=== PATIENT | male | born 1970 | race Caucasian/White ===

== ENCOUNTER 2018-11-02 19:22 | Inpatient (IN) | payer OTHER ==
[~2018-11-02] VITALS: Ht 172.7 cm; Wt 95.3 kg
[2018-11-03] VITALS (11 sets, daily range): BP systolic 101–129; BP diastolic 54–78; PULSE 56–75; RESP 18–20; Ht 172.7 cm; Wt 95.3 kg
[2018-11-03] MEDS ORDERED: SOD CHLORIDE 0.9% 1,000 ML IV SCH (00:41)
[2018-11-03] MEDS ORDERED: NACL 0.9% 3 ML SYG IV SCH (01:00)
[2018-11-03] MEDS ORDERED: ACETAMINOPHEN 325 MG TAB PO PRN (01:00)
[2018-11-03] MEDS ORDERED: morphine 2 MG INJ IV PRN (01:00)
[2018-11-03] MEDS ORDERED: NITROGLYCERIN (SL) 0.4 MG TAB SL PRN ×2 (01:00→16:00)
[2018-11-03] MEDS ORDERED: ONDANSETRON 4 MG INJ IV PRN (01:00)
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
[2018-11-03] MEDS ORDERED: CHOL100062 PO (07:37)
[2018-11-03] MEDS ORDERED: ASPI-903 PO (07:37)
[2018-11-03] MEDS ORDERED: ATOR40TA68 PO (07:37)
[2018-11-03] MEDS ORDERED: MTF1000T PO (07:37)
[2018-11-03] MEDS: ASPIRIN 81 MG TAB PO SCH (08:06)
[2018-11-03] MEDS: DEXTROSE 5%-0.45% NACL 1,000 ML IV SCH (10:40)
--- NOTE | 2018-11-03 13:06 | RADRPT ---
Vent Rate: 63 bpm RR Interval: 948 msec VA Interval: 133 msec QRS Duration: 102 msec QT Interval: 402 msec QTC Interval: 413 msec P-R-T Center [place]: 39 - 5 - 1 degrees Sinus rhythm...normal P axis, V-rate 50- 99 Posterior infarct, old...prom R T, V1-V3 or Q >40mS, V7-V9 Electronically Signed By: Seb Rice
--- NOTE | 2018-11-03 14:02 | PN ---
Date/Time of Note Date/Time of Note DATE: 11/03/18 TIME: 13:57 Assessment/Plan VTE Prophylaxis Risk score (from Ns)>0 risk: 2 SCD applied (from Ns): No SCD contraindicated: low risk/ambulating Pharmacological prophylaxis: NA/contraindicated Pharm contraindication: low risk/ambulating Lines/Catheters IV Catheter Type (from Nrs): Peripheral IV Assessment/Plan Assessment/Plan 1. Acute chest pain, rule out ACS - Cardiology was consulted given findings of positive stress test. Results showed lateral wall perfusion defect - serial trops negative and will check 1 more - Morphine/Nitro/O2 PRN 2. Diabetes Mellitus - A1c noted - ISS and accuchecks - on Metformin and another PO medication per pt. Will hold while inpatient 3. HLD - statin on board 4. HTN - stable 5. CAD s/p PCI - hx stent placement in the past - currently on aspirin 6. Disposition - Awaiting Cardiology input given findings of positive stress test Result Diagram: 11/03/18 0101 11/03/18 0101 Results 24hrs Laboratory Tests Test 11/03/18 01:01 11/03/18 05:31 11/03/18 05:33 White Blood Count 8.7 Red Blood Count 4.56 L Hemoglobin 12.5 L Hematocrit 38.8 L Mean Corpuscular Volume 85.1 Mean Corpuscular Hemoglobin 27.4 L Mean Corpuscular Hemoglobin Concent 32.2 Red Cell Distribution Width 14.0 Platelet Count 158 Mean Platelet Volume 12.3 H Immature Granulocytes % 0.200 Neutrophils % 49.3 Lymphocytes % 38.4 Monocytes % 9.2 Eosinophils % 2.4 Basophils % 0.5 Nucleated Red Blood Cells % 0.0 Immature Granulocytes # 0.020 Neutrophils # 4.3 Lymphocytes # 3.4 H Monocytes # 0.8 Eosinophils # 0.2 Basophils # 0.0 Nucleated Red Blood Cells # 0.0 Sodium Level 140 Potassium Level 3.8 Chloride Level 105 Carbon Dioxide Level 27 Anion Gap 8 Blood Urea Nitrogen 11 Creatinine 0.87 Est Glomerular Filtrat Rate mL/min > 60 Glucose Level 113 Calcium Level 9.4 Total Bilirubin 0.4 Direct Bilirubin 0.00 Indirect Bilirubin 0.4 Aspartate Amino Transf (AST/SGOT) 19 Alanine Aminotransferase (ALT/SGPT) 26 Alkaline Phosphatase 57 Creatine Kinase 41 40 Creatine Kinase Index 0.6 0.7 Creatinine Kinase MB (Mass) 0.24 0.28 Troponin I 0.015 0.018 Total Protein 7.1 Albumin 4.0 Globulin 3.10 Albumin/Globulin Ratio 1.29 Triglycerides Level 346 H Cholesterol Level 172 LDL Cholesterol, Calculated 80 HDL Cholesterol 23 L Cholesterol/HDL Ratio 7.4 Thyroid Stimulating Hormone (TSH) 2.870 Hemoglobin A1c 7.9 H Magnesium Level 2.1 Subjective 24 Hr Interval Summary Free Text/Dictation Patient states pain has improved and denies any N/V/SOB. Admits to Dm but unsure name of medications he takes. Exam/Review of Systems Exam Vitals Vital Signs Date Temp Pulse Resp B/P (MAP) Pulse Ox O2 O2 Flow FiO2 Time Delivery Rate 11/03/18 64 12:00 11/03/18 98.0 20 125/70 100 Room Air 11:09 (88) Intake and Output 11/02/18 11/02/18 11/03/18 1515:00 23:00 07:00 IntakeIntake Total 375 ml BalanceBalance 375 ml Exam General: sitting in chair at bedside. no acute distress Neck: Supple Chest: Nontender to palpation Lungs: Clear to auscultation bilaterally no crackles rales or wheezing Heart: Normal S1-S2, Regular rhythm and rate. No murmur, S3, or S4 Abdomen: Obese, soft , nontender, nondistended , bowel sounds are present. No guarding no rebound tenderness Extremities: Normal to inspection, no edema no cyanosis Results Results 24hrs Laboratory Tests Test 11/03/18 01:01 11/03/18 05:31 11/03/18 05:33 White Blood Count 8.7 Red Blood Count 4.56 L Hemoglobin 12.5 L Hematocrit 38.8 L Mean Corpuscular Volume 85.1 Mean Corpuscular Hemoglobin 27.4 L Mean Corpuscular Hemoglobin Concent 32.2 Red Cell Distribution Width 14.0 Platelet Count 158 Mean Platelet Volume 12.3 H Immature Granulocytes % 0.200 Neutrophils % 49.3 Lymphocytes % 38.4 Monocytes % 9.2 Eosinophils % 2.4 Basophils % 0.5 Nucleated Red Blood Cells % 0.0 Immature Granulocytes # 0.020 Neutrophils # 4.3 Lymphocytes # 3.4 H Monocytes # 0.8 Eosinophils # 0.2 Basophils # 0.0 Nucleated Red Blood Cells # 0.0 Sodium Level 140 Potassium Level 3.8 Chloride Level 105 Carbon Dioxide Level 27 Anion Gap 8 Blood Urea Nitrogen 11 Creatinine 0.87 Est Glomerular Filtrat Rate mL/min > 60 Glucose Level 113 Calcium Level 9.4 Total Bilirubin 0.4 Direct Bilirubin 0.00 Indirect Bilirubin 0.4 Aspartate Amino Transf (AST/SGOT) 19 Alanine Aminotransferase (ALT/SGPT) 26 Alkaline Phosphatase 57 Creatine Kinase 41 40 Creatine Kinase Index 0.6 0.7 Creatinine Kinase MB (Mass) 0.24 0.28 Troponin I 0.015 0.018 Total Protein 7.1 Albumin 4.0 Globulin 3.10 Albumin/Globulin Ratio 1.29 Triglycerides Level 346 H Cholesterol Level 172 LDL Cholesterol, Calculated 80 HDL Cholesterol 23 L Cholesterol/HDL Ratio 7.4 Thyroid Stimulating Hormone (TSH) 2.870 Hemoglobin A1c 7.9 H Magnesium Level 2.1 Medications Medication Current Medications IV Flush (NS 3 ml) 3 ml PER PROTOCOL IV ; Start 11/03/18 at 01:00 Ondansetron HCl (Zofran Inj) 4 mg Q6H PRN IV NAUSEA/VOMITING; Start 11/03/18 at 01:00 Aspirin (Aspirin) 81 mg DAILY PO Last administered on 11/03/18at 08:06; Admin Dose 81 MG; Start 11/03/18 at 09:00 Nitroglycerin (Nitroglycerin (Sl Tab) 0.4 Mg) 1 tab Q5M PRN SL .CHEST PAIN; Start 11/03/18 at 01:00 Acetaminophen (Tylenol Tab) 650 mg Q6H PRN PO .PAIN 1-3 OR TEMP; Start 11/03/18 at 01:00 Morphine Sulfate (morphine) 2 mg Q4H PRN IV .PAIN 7-10; Start 11/03/18 at 01:00 Dextrose/Sodium Chloride 1,000 ml @ 75 mls/hr [id number] IV Last administered on 11/03/18at 10:40; Admin Dose 75 MLS/HR; Start 11/03/18 at 10:00 BENY COVARRUBIAS MD Nov 03, 2018 14:02
[2018-11-03] MEDS ORDERED: GLUCOSE GEL 15 GRAM TUBE PO PRN ×2 (14:30)
[2018-11-03] MEDS ORDERED: GLUCOSE GEL 15 GRAM TUBE BUCCAL PRN (14:30)
[2018-11-03] MEDS ORDERED: DEXTROSE 50% 50 ML SYRINGE IV PRN ×2 (14:30)
[2018-11-03] MEDS ORDERED: GLUCAGON 1 MG INJ IM PRN (14:30)
[2018-11-03] MEDS: INSULIN ASPART [NOVOLOG] 3 ML PEN SC SCH ×2 (18:00→20:57)
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
[2018-11-03] MEDS ORDERED: ATORVASTATIN 40 MG TAB PO SCH (21:00)
[2018-11-04] VITALS (21 sets, daily range): BP systolic 104–169; BP diastolic 61–92; PULSE 52–85; RESP 10–21
[2018-11-04] MEDS: DEXTROSE 5%-0.45% NACL 1,000 ML IV SCH ×2 (02:18→12:40)
[2018-11-04] MEDS ORDERED: DIAZEPAM 5 MG TAB PO ONE (08:00)
[2018-11-04] MEDS ORDERED: DIPHENHYDRAMINE 50 MG CAP PO ONE (08:00)
[2018-11-04] MEDS: INSULIN ASPART [NOVOLOG] 3 ML PEN SC SCH ×4 (08:39→21:00)
[2018-11-04] MEDS: ASPIRIN 81 MG TAB PO SCH (08:39)
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
[2018-11-04] MEDS ORDERED: LIDOCAINE 1% (MDV) 20 ML INJ ONE (10:42)
[2018-11-04] MEDS ORDERED: HEPARIN 1000 UNITS/ML 10 ML INJ ONE ×2 (10:42)
[2018-11-04] MEDS ORDERED: NITROGLYCERIN (IC) 100 MCG/ML INJ ONE (10:42)
[2018-11-04] MEDS ORDERED: VERAPAMIL 5 MG INJ ONE (10:42)
[2018-11-04] MEDS ORDERED: MIDAZOLAM 1 MG/ML 2 ML INJ ONE (11:06)
[2018-11-04] MEDS ORDERED: FENTAnyl 50 MCG/ML VIAL ONE (11:18)
[2018-11-04] MEDS ORDERED: IOHEXOL 350MG/ML 50 ML BTL ONE ×2 (11:20→12:09)
[2018-11-04] MEDS ORDERED: BIVALIRUDIN 250MG /NS 50 ML 50 ML IVPB ONE (11:44)
--- NOTE | 2018-11-04 12:04 | PN ---
Date/Time of Note Date/Time of Note DATE: 11/04/18 TIME: 12:01 Assessment/Plan VTE Prophylaxis Risk score (from Nsg)>0 risk: 1 SCD applied (from Ns): No SCD contraindicated: low risk/ambulating Pharmacological prophylaxis: NA/contraindicated Pharm contraindication: low risk/ambulating Lines/Catheters IV Catheter Type (from Nrs): Peripheral IV Assessment/Plan Assessment/Plan 1. Acute chest pain, rule out ACS - Cardiology consultation appreciated and plans for C today in light of positive stress test showing small reversible lateral wall perfusion defect - serial trops negative - Morphine/Nitro/O2 PRN 2. Diabetes Mellitus - A1c noted - ISS and accuchecks - on Metformin and another PO medication per pt. Will hold while inpatient 3. HLD - statin on board 4. HTN - stable 5. CAD s/p PCI - hx stent placement in the past - currently on aspirin 6. Disposition - Plans for [facility] today and possible PCI with stent placement. Further plan of care based on [facility] results Result Diagram: 11/04/18 0516 11/04/18 0516 Results 24hrs Laboratory Tests Test 11/03/18 14:49 11/03/18 18:06 11/03/18 20:39 11/04/18 05:16 Creatine Kinase 39 Creatine Kinase 0.6 Index Creatinine Kinase MB < 0.22 (Mass) Troponin I < 0.012 Bedside Glucose 135 118 White Blood Count 6.7 # Red Blood Count 4.40 L Hemoglobin 12.2 L Hematocrit 37.8 L Mean Corpuscular 85.9 Volume Mean Corpuscular 27.7 L Hemoglobin Mean Corpuscular 32.3 Hemoglobin Concent Red Cell 13.7 Distribution Width Platelet Count 146 Mean Platelet Volume 12.7 H Immature 0.100 Granulocytes % Neutrophils % 54.4 Lymphocytes % 33.9 Monocytes % 9.1 Eosinophils % 2.1 Basophils % 0.4 Nucleated Red Blood 0.0 Cells % Immature 0.010 Granulocytes # Neutrophils # 3.6 Lymphocytes # 2.3 Monocytes # 0.6 Eosinophils # 0.1 Basophils # 0.0 Nucleated Red Blood 0.0 Cells # Prothrombin Time 11.8 L Prothrombin Time 0.9 Ratio INR International 0.86 Normalized Ratio Activated 29.8 Partial Thromboplast Time Sodium Level 140 Potassium Level 3.8 Chloride Level 107 Carbon Dioxide Level 27 Anion Gap 6 Blood Urea Nitrogen 12 Creatinine 0.71 Est Glomerular > 60 Filtrat Rate mL/min Glucose Level 180 Calcium Level 9.2 Total Bilirubin 0.3 Direct Bilirubin 0.00 Indirect Bilirubin 0.3 Aspartate Amino 19 Transf (AST/SGOT) Alanine 23 Aminotransferase (AL T/SGPT) Alkaline Phosphatase 65 Total Protein 6.8 Albumin 3.9 Globulin 2.90 Albumin/Globulin 1.34 Ratio Test 11/04/18 08:12 Bedside Glucose 147 Subjective 24 Hr Interval Summary Free Text/Dictation Patient states hes feeling better and anxious to get [facility] over with so can go home. States he hates hospitals. Exam/Review of Systems Exam Vitals Vital Signs Date Temp Pulse Resp B/P (MAP) Pulse Ox O2 O2 Flow FiO2 Time Delivery Rate 11/04/18 98.2 64 20 119/72 98 Room Air 08:07 (88) Intake and Output 11/03/18 11/03/18 11/04/18 1515:00 23:00 07:00 IntakeIntake Total 350 ml 550 ml 1700 ml BalanceBalance 350 ml 550 ml 1700 ml Exam General: sitting in chair at bedside. no acute distress Neck: Supple Chest: Nontender to palpation Lungs: Clear to auscultation bilaterally no crackles rales or wheezing Heart: Normal S1-S2, Regular rhythm and rate. No murmur, S3, or S4 Abdomen: Obese, soft , nontender, nondistended , bowel sounds are present. No guarding no rebound tenderness Extremities: Normal to inspection, no edema no cyanosis Results Results 24hrs Laboratory Tests Test 11/03/18 14:49 11/03/18 18:06 11/03/18 20:39 11/04/18 05:16 Creatine Kinase 39 Creatine Kinase 0.6 Index Creatinine Kinase MB < 0.22 (Mass) Troponin I < 0.012 Bedside Glucose 135 118 White Blood Count 6.7 # Red Blood Count 4.40 L Hemoglobin 12.2 L Hematocrit 37.8 L Mean Corpuscular 85.9 Volume Mean Corpuscular 27.7 L Hemoglobin Mean Corpuscular 32.3 Hemoglobin Concent Red Cell 13.7 Distribution Width Platelet Count 146 Mean Platelet Volume 12.7 H Immature 0.100 Granulocytes % Neutrophils % 54.4 Lymphocytes % 33.9 Monocytes % 9.1 Eosinophils % 2.1 Basophils % 0.4 Nucleated Red Blood 0.0 Cells % Immature 0.010 Granulocytes # Neutrophils # 3.6 Lymphocytes # 2.3 Monocytes # 0.6 Eosinophils # 0.1 Basophils # 0.0 Nucleated Red Blood 0.0 Cells # Prothrombin Time 11.8 L Prothrombin Time 0.9 Ratio INR International 0.86 Normalized Ratio Activated 29.8 Partial Thromboplast Time Sodium Level 140 Potassium Level 3.8 Chloride Level 107 Carbon Dioxide Level 27 Anion Gap 6 Blood Urea Nitrogen 12 Creatinine 0.71 Est Glomerular > 60 Filtrat Rate mL/min Glucose Level 180 Calcium Level 9.2 Total Bilirubin 0.3 Direct Bilirubin 0.00 Indirect Bilirubin 0.3 Aspartate Amino 19 Transf (AST/SGOT) Alanine 23 Aminotransferase (AL T/SGPT) Alkaline Phosphatase 65 Total Protein 6.8 Albumin 3.9 Globulin 2.90 Albumin/Globulin 1.34 Ratio Test 11/04/18 08:12 Bedside Glucose 147 Medications Medication Current Medications IV Flush (NS 3 ml) 3 ml PER PROTOCOL IV ; Start 11/03/18 at 01:00 Ondansetron HCl (Zofran Inj) 4 mg Q6H PRN IV NAUSEA/VOMITING; Start 11/03/18 at 01:00 Aspirin (Aspirin) 81 mg DAILY PO Last administered on 11/04/18at 08:39; Admin Dose 81 MG; Start 11/03/18 at 09:00 Acetaminophen (Tylenol Tab) 650 mg Q6H PRN PO .PAIN 1-3 OR TEMP; Start 11/03/18 at 01:00 Morphine Sulfate (morphine) 2 mg Q4H PRN IV .PAIN 7-10; Start 11/03/18 at 01:00 Dextrose/Sodium Chloride 1,000 ml @ 75 mls/hr [id number] IV Last administered on 11/04/18at 02:18; Admin Dose 75 MLS/HR; Start 11/03/18 at 10:00 Insulin Aspart (Novolog Insulin Pen) NOVOLOG *MILD* ALGORITHM WITH MEALS BEDTIME SC Last administered on 11/04/18at 08:39; Admin Dose 1 UNIT; Start 11/03/18 at 18:00 Miscellaneous Information 1 ea NOTE XX ; Start 11/03/18 at 14:30 Glucose (Glutose) 15 gm Q15M PRN PO DECREASED GLUCOSE; Start 11/03/18 at 14:30 Glucose (Glutose) 22.5 gm Q15M PRN PO DECREASED GLUCOSE; Start 11/03/18 at 14:30 Dextrose (D50w Syringe) 25 ml Q15M PRN IV DECREASED GLUCOSE; Start 11/03/18 at 14:30 Dextrose (D50w Syringe) 50 ml Q15M PRN IV DECREASED GLUCOSE; Start 11/03/18 at 14:30 Glucagon (Glucagen) 1 mg Q15M PRN IM DECREASED GLUCOSE; Start 11/03/18 at 14:30 Glucose (Glutose) 15 gm Q15M PRN BUCCAL DECREASED GLUCOSE; Start 11/03/18 at 14:30 Nitroglycerin (Nitroglycerin (Sl Tab) 0.4 Mg) 1 tab Q5M PRN SL ANGINA; Start 11/03/18 at 16:00 Atorvastatin Calcium (Lipitor) 40 mg HS PO ; Start 11/04/18 at 21:00 BENY COVARRUBIAS MD Nov 04, 2018 12:04
[2018-11-04] MEDS ORDERED: IODIXANOL LOCM 100 ML BTL ONE (12:26)
[2018-11-04] MEDS ORDERED: TICAGRELOR 90 MG TABLET ONE (12:29)
[2018-11-04] MEDS ORDERED: SOD CHLORIDE 0.9% 1,000 ML IV SCH (12:42)
[2018-11-04] MEDS ORDERED: morphine 2 MG INJ IV PRN (13:00)
[2018-11-04] MEDS ORDERED: ACETAMINOPHEN 325 MG TAB PO PRN (13:00)
[2018-11-04] MEDS ORDERED: OXYCODONE/ACETAMINOPHEN (5/325) TAB PO PRN (13:00)
[2018-11-04] MEDS ORDERED: AL HYDROX/MG HYDROX/SIMETH 30 ML CUP PO PRN (13:00)
[2018-11-04] MEDS ORDERED: ONDANSETRON 4 MG INJ IV PRN (13:00)
--- NOTE | 2018-11-04 14:31 | CARRPT ---
DATE OF PROCEDURE: 11/04/2018 TYPE OF PROCEDURES: 1. Left heart catheterization. 2. Coronary angiography. 3. Percutaneous transluminal coronary angioplasty with placement of drug-eluting stent x1 to obtuse marginal 2 with 3.0 x 23 mm drug-eluting stent. 4. Moderate conscious sedation. ATTENDING PHYSICIAN: Mindy Hardy MD REFERRING PHYSICIAN: Lyn Moreno MD, from the hospitalist service. INDICATION: Positive stress test findings for lateral ischemia. TYPE OF ANESTHESIA: Conscious and local. BRIEF HISTORY: Mr. Robin is a 48-year-old male with history of hypertension, dyslipidemia, diabetes mellitus with ongoing tobacco usage, who presents to [facility] complaining of subs ternal chest pain, underwent cardiac stress test showing positive lateral ischemia. Given these find ings, the patient was transferred to [facility], capitated to this hospital for a P TCA and stent placement. PROCEDURE IN DETAILS: After informed consent, the patient was brought to the [facility] cardiac catheterization lab where his right radial area was prepped and draped in the usual roberto rile fashion. A 2% lidocaine was infiltrated into the right radial area in order to achieve adequate anesthesia. Using the modified Seldinger technique, the patient's right radial artery was cannulate d and a 6-Serbian sheath was placed. A 6-Serbian JL3.5 catheter was used to cannulate the left main co ronary ostium. With contrast injection, multiple views of the left coronary arterial system were obt ained. JL3.5 was removed over a guidewire and a JR4 was used to cannulate the right coronary arteria l ostium. With contrast injection, multiple views of the right coronary arterial system were obtaine d. JR4 was removed over a guidewire and a 6-Serbian pigtail was passed down the ascending aorta and p laced in LV. LVEDP was measured and pullback across the aortic valve to assess for significant gradi ent, which there was not and removed. Subsequently at this time, we moved directly to interventional procedure. The patient had ACT checked preinterventionally which returned low and he was given Rohini omax bolus continuous infusion. A CLS3 guide was used to cannulate the left coronary ostium and we w ere able to with some difficulty finally crossed the patient's very tight obtuse marginal lesion with a Liquid Fertilizer Servicer 50 guidewire. Subsequently at this time, we used a 2.5 x 12 mm balloon to predilate the les ion up to 14 to 16 atmospheres multiple times and then finally to 18 atmospheres. At this point, we attempted to pass a stent unsuccessfully. The stent was removed and a fresh 2.5 balloon had to be us ed in order to recross the lesion and balloon inflated to 20 atmospheres. At this time, the balloon was removed and we again attempted to cross tightest part lesion unsuccessfully. Subsequently at thi s time, a Mailman 0.014 guidewire was passed distal to the lesion to use a dylon wire and at this poi nt, we were able to pass the stent into the obtuse marginal and the stent was deployed at 14 atmosphe res and post-dilated with the stent delivery system at 16 atmospheres. Stent delivery system was rem michael. Followup angiogram was obtained revealing excellent deployment of stent, INNA flow throughout the vessel. No signs of complication including perforation or dissection. There did exist a way to the most tightest part of the lesion in the proximal portion of the stent. Subsequently, a Noncompli ant 3.25 x 12 mm balloon was used to post-dilate the stent up to 20 atmospheres x2. This was removed . Followup angiogram was obtained revealing excellent result deployment of stent, INNA 3 flow throug hout the vessel. No signs of complication including perforation or dissection and no longer a waist. The patient additionally was given 200 mcg of IC nitroglycerin during this time and followup angiog vamshi were obtained. Subsequently at this time, the patient's interventional guide and guidewires wer e removed. The patient's sheath was removed. TR band was applied. There were no noted complication s. FINDINGS: Coronary angiography: Left main is 4.5 mm, no significant focal stenosis. Circumflex pro ximally is a 3.5 mm vessel and in its proximal portion has an eccentric-appearing 50% to 60% lesion. There is a very small branching obtuse marginal 1 sub 1.5 mm vessel and obtuse marginal #2 has 99% s ubtotal occlusion. The circumflex distal to the stent has multiple areas of stenosis up to approximat pankaj 50% to 60%. The circumflex is a dominant vessel and therefore gives off a left-sided PDA which h as an eccentric-appearing 70% to 80% distal lesion and then there is a left-sided posterolateral bran ch which is a 2 mm vessel and has a proximal appearing 50% stenosis. You can see faint collaterals s een from the distal circumflex giving grade I collateral flow to the right coronary artery. The LAD proximally is a 2.5 mm vessel and has proximal 50% stenosis at the ostium and has a stented zone in t he mid portion, which is patent with no significant focal stenosis therefore at the apex and you can see collateral flow from the apex to the LAD given to the right coronary artery. There is a proximal appearing diagonal 2 mm, no significant focal stenoses. The right coronary artery is flush occluded at the ostium and seen to have some faint right to right collaterals and as described before left to right collateral flow. PTCA and stent placement: Prior to the patient, the patient's ostial marginal #2 is 99% subtotal occ lusion. Post-PTCA and stent placement, there was no evidence of occlusion, INNA 3 flow throughout th e vessel, no signs of complication including perforation or dissection. Measurement of left end diastolic pressure of 19. No significant aortic stenosis by gradient. TOTAL FLUOROSCOPY TIME: 20 minutes. TOTAL CONTRAST: 260 mL. IMPRESSION: 1. Multivessel obstructive coronary artery disease involving 99% subtotal occlusion in the patient's obtuse marginal, status post successful PTCA and stent placement x1 with drug-eluting stent and 100% occlusion in the patient's proximal right coronary artery. 2. Patent left anterior descending stent with a probable diffuse disease of the left anterior desce nding. 3. Mildly elevated left heart filling pressures. RECOMMENDATIONS: In light of procedure findings, the patient will be maintained on: 1. Brilinta 90 mg 1 tab p.o. b.i.d., which he was loaded on previously for at least 6 months. 2. Aspirin 81 mg 1 tab p.o. daily. 3. Maximize medical management. 4. Aggressive risk factor reduction. 5. The patient will be readmitted to telemetry floor for post-catheterization observation and contin ued management of symptoms with probable discharge the following day. Dictated By: MINDY TRIVEDI/LAITH Conf#: [id number] DID#: [id number] CC: MIKE STEPHENSON MD; LYN MORENO MD;*EndCC*
--- NOTE | 2018-11-04 14:57 | RADRPT ---
Vent Rate: 72 bpm RR Interval: 832 msec OR Interval: 135 msec QRS Duration: 96 msec QT Interval: 371 msec QTC Interval: 407 msec P-R-T [place]: 47 - 46 - -12 degrees Sinus rhythm...normal P axis, V-rate 50- 99 Posterior infarct, old...prom R T, V1-V3 or Q >40mS, V7-V9 Electronically Signed By: Seb Rice
[2018-11-04] MEDS ORDERED: ATORVASTATIN 40 MG TAB PO SCH (21:00)
[2018-11-04] MEDS: TICAGRELOR 90 MG TABLET PO SCH (21:12)
[2018-11-05] VITALS: PULSE 76
[2018-11-05 04:00] VITALS: PULSE 62
[2018-11-05 07:11] VITALS: BP 122/87; PULSE 66; RESP 20
[2018-11-05] MEDS: INSULIN ASPART [NOVOLOG] 3 ML PEN SC SCH ×2 (08:00→11:37)
[2018-11-05 08:13] VITALS: PULSE 91
[2018-11-05] MEDS: TICAGRELOR 90 MG TABLET PO SCH (08:29)
[2018-11-05] MEDS ORDERED: ASPIRIN (EC) 81 MG TAB PO SCH (09:00)
[2018-11-05 11:11] VITALS: BP 139/86; PULSE 65; RESP 20
--- NOTE | 2018-11-05 11:39 | RADRPT ---
Vent Rate: 66 bpm RR Interval: 920 msec SC Interval: 131 msec QRS Duration: 88 msec QT Interval: 385 msec QTC Interval: 401 msec P-R-T [place]: 49 - 44 - 8 degrees Sinus rhythm...normal P axis, V-rate 50- 99 Ventricular premature complex...V complex w/ short R-R interval Posterior infarct, old...prom R T, V1-V3 or Q >40mS, V7-V9 Electronically Signed By: Seb Rice
--- NOTE | 2018-11-05 11:53 | PN ---
Date/Time of Note Date/Time of Note DATE: 11/05/18 TIME: 11:43 Assessment/Plan VTE Prophylaxis Risk score (from Ns)>0 risk: 1 SCD applied (from Ns): No SCD contraindicated: low risk/ambulating Pharmacological prophylaxis: other Lines/Catheters IV Catheter Type (from [facility]): Peripheral IV Assessment/Plan Assessment/Plan 1. Coronary artery disease, s/p PCI - Cardiology consultation appreciated and stent placed to the ostial marginal. Discussed with patient need to continue on DAPT. Per patient, stopped Brilinta in the past since didn't want to be on multiple medications. discussed need to continue to prevent stent occlusion and further occlusions - serial trops negative - Morphine/Nitro/O2 PRN 2. Diabetes Mellitus - A1c noted - ISS and accuchecks - on Metformin and another PO medication per pt. Will hold while inpatient 3. HLD - statin on board 4. HTN - stable 5. CAD s/p PCI - hx stent placement in the past - currently on aspirin 6. Disposition - When medically cleared by Cardiology, will d/c home Result Diagram: 11/05/18 0515 11/05/18 0516 Results 24hrs Laboratory Tests Test 11/04/18 17:16 11/04/18 20:37 11/05/18 05:15 11/05/18 05:16 Bedside Glucose 119 109 White Blood Count 7.6 Red Blood Count 4.64 L Hemoglobin 12.7 L Hematocrit 39.5 L Mean Corpuscular 85.1 Volume Mean Corpuscular 27.4 L Hemoglobin Mean Corpuscular 32.2 Hemoglobin Concent Red Cell 14.1 Distribution Width Platelet Count 155 Mean Platelet Volume 13.0 H Immature 0.300 Granulocytes % Neutrophils % 55.7 Lymphocytes % 31.4 Monocytes % 10.0 Eosinophils % 2.2 Basophils % 0.4 Nucleated Red Blood 0.0 Cells % Immature 0.020 Granulocytes # Neutrophils # 4.2 Lymphocytes # 2.4 Monocytes # 0.8 Eosinophils # 0.2 Basophils # 0.0 Nucleated Red Blood 0.0 Cells # Sodium Level 142 140 Potassium Level 4.3 4.6 Chloride Level 110 110 Carbon Dioxide Level 25 24 Anion Gap 7 6 Blood Urea Nitrogen 6 L 6 L Creatinine 0.69 0.64 Est Glomerular > 60 > 60 Filtrat Rate mL/min Glucose Level 121 # 117 Calcium Level 9.3 9.5 Total Bilirubin 0.5 Direct Bilirubin 0.00 Indirect Bilirubin 0.5 Aspartate Amino 24 Transf (AST/SGOT) Alanine 27 Aminotransferase (AL T/SGPT) Alkaline Phosphatase 57 Total Protein 6.8 Albumin 3.8 Globulin 3.00 Albumin/Globulin 1.26 Ratio Test 11/05/18 08:02 Bedside Glucose 125 Subjective 24 Hr Interval Summary Free Text/Dictation Patient very eager to go home and requesting to shower. No acute overnight events. Exam/Review of Systems Exam Vitals Vital Signs Date Temp Pulse Resp B/P (MAP) Pulse Ox O2 O2 Flow FiO2 Time Delivery Rate 11/05/18 98.3 65 20 139/86 100 Room Air 11:11 (103) Intake and Output 11/04/18 11/04/18 11/05/18 1515:00 23:00 07:00 IntakeIntake Total 120 ml 550 ml OutputOutput Total 800 ml BalanceBalance -680 ml 550 ml Exam General: walking around room in acute distress Neck: Supple Chest: Nontender to palpation Lungs: Clear to auscultation bilaterally no crackles rales or wheezing Heart: Normal S1-S2, Regular rhythm and rate. No murmur, S3, or S4 Abdomen: Obese, soft , nontender, nondistended , bowel sounds are present. No guarding no rebound tenderness Extremities: Normal to inspection, no edema no cyanosis Results Results 24hrs Laboratory Tests Test 11/04/18 17:16 11/04/18 20:37 11/05/18 05:15 11/05/18 05:16 Bedside Glucose 119 109 White Blood Count 7.6 Red Blood Count 4.64 L Hemoglobin 12.7 L Hematocrit 39.5 L Mean Corpuscular 85.1 Volume Mean Corpuscular 27.4 L Hemoglobin Mean Corpuscular 32.2 Hemoglobin Concent Red Cell 14.1 Distribution Width Platelet Count 155 Mean Platelet Volume 13.0 H Immature 0.300 Granulocytes % Neutrophils % 55.7 Lymphocytes % 31.4 Monocytes % 10.0 Eosinophils % 2.2 Basophils % 0.4 Nucleated Red Blood 0.0 Cells % Immature 0.020 Granulocytes # Neutrophils # 4.2 Lymphocytes # 2.4 Monocytes # 0.8 Eosinophils # 0.2 Basophils # 0.0 Nucleated Red Blood 0.0 Cells # Sodium Level 142 140 Potassium Level 4.3 4.6 Chloride Level 110 110 Carbon Dioxide Level 25 24 Anion Gap 7 6 Blood Urea Nitrogen 6 L 6 L Creatinine 0.69 0.64 Est Glomerular > 60 > 60 Filtrat Rate mL/min Glucose Level 121 # 117 Calcium Level 9.3 9.5 Total Bilirubin 0.5 Direct Bilirubin 0.00 Indirect Bilirubin 0.5 Aspartate Amino 24 Transf (AST/SGOT) Alanine 27 Aminotransferase (AL T/SGPT) Alkaline Phosphatase 57 Total Protein 6.8 Albumin 3.8 Globulin 3.00 Albumin/Globulin 1.26 Ratio Test 11/05/18 08:02 Bedside Glucose 125 Medications Medication Current Medications IV Flush (NS 3 ml) 3 ml PER PROTOCOL IV ; Start 11/03/18 at 01:00 Acetaminophen (Tylenol Tab) 650 mg Q6H PRN PO .PAIN 1-3 OR TEMP; Start 11/03/18 at 01:00 Morphine Sulfate (morphine) 2 mg Q4H PRN IV .PAIN 7-10; Start 11/03/18 at 01:00 Insulin Aspart (Novolog Insulin Pen) NOVOLOG *MILD* ALGORITHM WITH MEALS BEDTIME SC Last administered on 11/04/18at 08:39; Admin Dose 1 UNIT; Start 11/03/18 at 18:00 Miscellaneous Information 1 ea NOTE XX ; Start 11/03/18 at 14:30 Glucose (Glutose) 15 gm Q15M PRN PO DECREASED GLUCOSE; Start 11/03/18 at 14:30 Glucose (Glutose) 22.5 gm Q15M PRN PO DECREASED GLUCOSE; Start 11/03/18 at 14:30 Dextrose (D50w Syringe) 25 ml Q15M PRN IV DECREASED GLUCOSE; Start 11/03/18 at 14:30 Dextrose (D50w Syringe) 50 ml Q15M PRN IV DECREASED GLUCOSE; Start 11/03/18 at 14:30 Glucagon (Glucagen) 1 mg Q15M PRN IM DECREASED GLUCOSE; Start 11/03/18 at 14:30 Glucose (Glutose) 15 gm Q15M PRN BUCCAL DECREASED GLUCOSE; Start 11/03/18 at 14:30 Nitroglycerin (Nitroglycerin (Sl Tab) 0.4 Mg) 1 tab Q5M PRN SL ANGINA; Start 11/03/18 at 16:00 Atorvastatin Calcium (Lipitor) 40 mg HS PO Last administered on 11/04/18at 21:08; Admin Dose 40 MG; Start 11/04/18 at 21:00 Aspirin (Halfprin) 81 mg DAILY PO Last administered on 11/05/18at 08:22; Admin Dose 81 MG; Start 11/05/18 at 09:00 Ticagrelor (Brilinta) 90 mg BID PO Last administered on 11/05/18at 08:29; Admin Dose 90 MG; Start 11/04/18 at 21:00 Acetaminophen (Tylenol Tab) 650 mg Q4H PRN PO PAIN; Start 11/04/18 at 13:00 Oxycodone/ Acetaminophen (Percocet (5/ 325)) 1 tab Q4H PRN PO PAIN; Start 11/04/18 at 13:00 Morphine Sulfate (morphine) 1 mg Q1H PRN IV PAIN; Start 11/04/18 at 13:00 Al Hydrox/Mg Hydrox/Simethicone (Mag-Al Plus) 30 ml Q4H PRN PO GASTROINTESTINAL UPSET; Start 11/04/18 at 13:00 Ondansetron HCl (Zofran Inj) 4 mg Q4H PRN IV NAUSEA AND/OR VOMITING; Start 11/04/18 at 13:00 BENY COVARRUBIAS MD Nov 05, 2018 11:53
[2018-11-05] MEDS ORDERED: ASPI-903 PO (11:55)
[2018-11-05] MEDS ORDERED: MTF1000T PO (11:55)
[2018-11-05] MEDS ORDERED: TICA90TA PO (11:55)
[2018-11-05] MEDS ORDERED: NITR0.4T32 SL (11:55)
[2018-11-05] MEDS ORDERED: ATOR40TA68 PO (11:55)
--- NOTE | 2018-11-05 12:02 | PDOCDIS ---
Discharge Instructions DIAGNOSIS Discharge Diagnosis 1. Coronary artery disease, s/p stent placement to ostial marginal 2. Diabetes Mellitus type 2 3. HLD CONDITION [id number] Patient Condition: [id number] Stable HOME CARE INSTRUCTIONS: [id number] Diet Instructions: [id number] Low Fat /Cholesterol ACTIVITY: [id number] Activity Restrictions: [id number] Restrictions FOLLOW UP/APPOINTMENTS Follow-up Plan 1. Follow up with your primary care physician in 1-2 weeks 2. Follow up with [facility] in 2 weeks 3. It is important to continue on Brilinta twice a day and aspirin daily to prevent clotting off of your current stents. You will need to continue Brilinta for at least 1 year and aspirin indefinitely 4. Increase physical activity as tolerated and follow a low cholesterol, low fat diet 5. If experiencing any concerning symptoms, please go to the nearest emergency department REFERRALS Other Referrals Festus Hardy MD Specialty: Interventional Cardiology Comments Office Address [address] [place] [id number] Office BENY COVARRUBIAS MD Nov 05, 2018 12:02
[2018-11-05 12:10] VITALS: PULSE 71
--- NOTE | 2018-11-05 14:45 | CONS ---
Assessment/Plan Assessment/Plan Hospital Course (Demo Recall) IMPRESSION: 1. Positive stress test for lateral ischemia.. Now post-o s/p stent with lorraine x 1 to OM for high grade stenosis day#1 2. Chest pain, currently resolved.-neg trop x 3 here at [facility] 3. Shortness of breath. 4. 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 Now post-op s/p stent to OM x 1 with LORRAINE 5. History of myocardial infarction at age of 43. 6. Hypertension. 7. Dyslipidemia. 8. Diabetes mellitus. 9. Positive tobacco Recc: -Tele -serial ecg's -Continue asa/statin and now brilinta -ok fo dc from cardiac standpoint with outpatient f/u Consultation Date/Type/Reason Admit Date/Time Nov 03, 2018 at 00:20 Initial Consult Date 11/03/18 Type of Consult Cardiology Reason for Consultation chest pain/abnl mpi Requesting Provider: BENY COVARRUBIAS MD Date/Time of Note DATE: 11/05/18 TIME: 14:39 Exam/Review of Systems Vital Signs Vitals Vital Signs Date Temp Pulse Resp B/P (MAP) Pulse Ox O2 O2 Flow FiO2 Time Delivery Rate 11/05/18 71 12:10 11/05/18 98.3 20 139/86 100 Room Air 11:11 (103) Intake and Output 11/04/18 11/04/18 11/05/18 1515:00 23:00 07:00 IntakeIntake Total 120 ml 550 ml OutputOutput Total 800 ml BalanceBalance -680 ml 550 ml Exam Exam Review of Systems: CONSTITUTIONAL: No fevers, chills. PULMONARY: No sob CARDIOVASCULAR: No chest pain/palpitations GASTROINTESTINAL: No nausea/vomiting. GENITOURINARY: No hematuria/dysuria. MUSCULOSKELETAL: No myagias/arthalgias. PSYCHIATRIC: The patient denies depression. NEUROLOGIC: No weakness Constitutional: alert Psych: no complaints Head: normocephalic ENMT: mucosa pink and moist Neck: supple, jvd (9 cm water) Respiratory: clear to auscultation Cardiovascular: regular rate and rhythm Gastrointestinal: soft, non-tender Musculoskeletal: muscle tone (normal) Extremities: edema (none) Neurological: other (No focal deficits) Labs Result Diagram: 11/05/18 0515 11/05/18 0516 Results 24hrs Laboratory Tests Test 11/04/18 17:16 11/04/18 20:37 11/05/18 05:15 11/05/18 05:16 Bedside Glucose 119 109 White Blood Count 7.6 Red Blood Count 4.64 L Hemoglobin 12.7 L Hematocrit 39.5 L Mean Corpuscular 85.1 Volume Mean Corpuscular 27.4 L Hemoglobin Mean Corpuscular 32.2 Hemoglobin Concent Red Cell 14.1 Distribution Width Platelet Count 155 Mean Platelet Volume 13.0 H Immature 0.300 Granulocytes % Neutrophils % 55.7 Lymphocytes % 31.4 Monocytes % 10.0 Eosinophils % 2.2 Basophils % 0.4 Nucleated Red Blood 0.0 Cells % Immature 0.020 Granulocytes # Neutrophils # 4.2 Lymphocytes # 2.4 Monocytes # 0.8 Eosinophils # 0.2 Basophils # 0.0 Nucleated Red Blood 0.0 Cells # Sodium Level 142 140 Potassium Level 4.3 4.6 Chloride Level 110 110 Carbon Dioxide Level 25 24 Anion Gap 7 6 Blood Urea Nitrogen 6 L 6 L Creatinine 0.69 0.64 Est Glomerular > 60 > 60 Filtrat Rate mL/min Glucose Level 121 # 117 Calcium Level 9.3 9.5 Total Bilirubin 0.5 Direct Bilirubin 0.00 Indirect Bilirubin 0.5 Aspartate Amino 24 Transf (AST/SGOT) Alanine 27 Aminotransferase (AL T/SGPT) Alkaline Phosphatase 57 Total Protein 6.8 Albumin 3.8 Globulin 3.00 Albumin/Globulin 1.26 Ratio Test 11/05/18 08:02 11/05/18 11:35 Bedside Glucose 125 164 Medications Medications Current Medications IV Flush (NS 3 ml) 3 ml PER PROTOCOL IV ; Start 11/03/18 at 01:00 Acetaminophen (Tylenol Tab) 650 mg Q6H PRN PO .PAIN 1-3 OR TEMP; Start 11/03/18 at 01:00 Morphine Sulfate (morphine) 2 mg Q4H PRN IV .PAIN 7-10; Start 11/03/18 at 01:00 Insulin Aspart (Novolog Insulin Pen) NOVOLOG *MILD* ALGORITHM WITH MEALS BEDTIME SC Last administered on 11/04/18at 08:39; Admin Dose 1 UNIT; Start 11/03/18 at 18:00 Miscellaneous Information 1 ea NOTE XX ; Start 11/03/18 at 14:30 Glucose (Glutose) 15 gm Q15M PRN PO DECREASED GLUCOSE; Start 11/03/18 at 14:30 Glucose (Glutose) 22.5 gm Q15M PRN PO DECREASED GLUCOSE; Start 11/03/18 at 14:30 Dextrose (D50w Syringe) 25 ml Q15M PRN IV DECREASED GLUCOSE; Start 11/03/18 at 14:30 Dextrose (D50w Syringe) 50 ml Q15M PRN IV DECREASED GLUCOSE; Start 11/03/18 at 14:30 Glucagon (Glucagen) 1 mg Q15M PRN IM DECREASED GLUCOSE; Start 11/03/18 at 14:30 Glucose (Glutose) 15 gm Q15M PRN BUCCAL DECREASED GLUCOSE; Start 11/03/18 at 14:30 Nitroglycerin (Nitroglycerin (Sl Tab) 0.4 Mg) 1 tab Q5M PRN SL ANGINA; Start at 16:00 Atorvastatin Calcium (Lipitor) 40 mg HS PO Last administered on 11/04/18at 21:08; Admin Dose 40 MG; Start 11/04/18 at 21:00 Aspirin (Halfprin) 81 mg DAILY PO Last administered on 11/05/18at 08:22; Admin Dose 81 MG; Start 11/05/18 at 09:00 Ticagrelor (Brilinta) 90 mg BID PO Last administered on 11/05/18at 08:29; Admin Dose 90 MG; Start 11/04/18 at 21:00 Acetaminophen (Tylenol Tab) 650 mg Q4H PRN PO PAIN; Start 11/04/18 at 13:00 Oxycodone/ Acetaminophen (Percocet (5/ 325)) 1 tab Q4H PRN PO PAIN; Start 11/04/18 at 13:00 Morphine Sulfate (morphine) 1 mg Q1H PRN IV PAIN; Start 11/04/18 at 13:00 Al Hydrox/Mg Hydrox/Simethicone (Mag-Al Plus) 30 ml Q4H PRN PO GASTROINTESTINAL UPSET; Start 11/04/18 at 13:00 Ondansetron HCl (Zofran Inj) 4 mg Q4H PRN IV NAUSEA AND/OR VOMITING; Start 11/04/18 at 13:00 MINDY BERGMAN Nov 05, 2018 14:45
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
== END 2018-11-05 15:56 | disposition home or self-care (01) | DRG 247 ==
LOC: 6WM 11-03 00:20
PROVIDERS: ADMIT Internal Medicine; ATTEND Internal Medicine
PROC: 4A023N7 Measurement of Cardiac Sampling and Pressure, Left Heart, Percutaneous Approach (ICD-10-PCS; 2018-11-04)
PROC: B2111ZZ Fluoroscopy of Multiple Coronary Arteries using Low Osmolar Contrast (ICD-10-PCS; 2018-11-04)
PROC: 027034Z Dilation of Coronary Artery, One Artery with Drug-eluting Intraluminal Device, Percutaneous Approach (ICD-10-PCS; principal; 2018-11-04 11:00)
DX: I25.10 Atherosclerotic heart disease of native coronary artery without angina pectoris (principal); I25.2 Old myocardial infarction; I10 Essential (primary) hypertension; E78.5 Hyperlipidemia, unspecified; E11.9 Type 2 diabetes mellitus without complications; Z72.0 Tobacco use
CPT/HCPCS: 80048; 80053; 80061; 82550; 82553; 82962; 83036; 83735; 84443; 84484; 85025; 85610; 85730; 87081; 92928; 93005; 93458; C1725; C1876; C1887; J0583; J1644; J1815; J2250; J3010; J7030; J7042; Q9967